=== PATIENT | female | born 1960 | race African-American/Black ===

== ENCOUNTER → 2017-01-23 20:18 | Emergency (ER) | payer MEDICARE | END | disposition home or self-care (01) | LOC: CFTX 20:18 | DX: S40.861A Insect bite (nonvenomous) of right upper arm, initial encounter (principal); E11.9 Type 2 diabetes mellitus without complications; I10 Essential (primary) hypertension; Z90.710 Acquired absence of both cervix and uterus; W57.XXXA Bitten or stung by nonvenomous insect and other nonvenomous arthropods, initial encounter; Y92.9 Unspecified place or not applicable; Z91.040 Latex allergy status | CPT/HCPCS: 99282 ==

== ENCOUNTER 2017-02-17 22:57 | Emergency (ER) | payer MEDICARE | END 2017-02-18 04:00 | disposition home or self-care (01) | LOC: CED 22:57 | DX: B02.9 Zoster without complications (principal); J45.909 Unspecified asthma, uncomplicated; Z88.1 Allergy status to other antibiotic agents; E03.9 Hypothyroidism, unspecified; Z90.710 Acquired absence of both cervix and uterus | CPT/HCPCS: 99282 ==

== ENCOUNTER → 2017-03-09 | Outpatient (CLI) | payer MEDICARE ==
--- NOTE | ~2017-03-09 | MR88 ---
[facility] A Service of [facility] RADIOLOGY TEXT RESULTS PATIENT: KYLE RODRIGUEZ LOCATION: [facility] : 58 UNIT #: [id number] AGE: [address]: Cezar Bermudez IV, MD SEX: F ORDER DR: [id number] [address] [address] [id number] MR#: [id number] Acc #: [id number] NAME: KYLE RODRIGUEZ : 1960 SEX: F STUDY DATE/TIME: 03/09/2017 16:40 UNIT: [facility] ROOM: STUDY DESCRIPTION: MR Humerus WWo Contrast Rt Attending Physician: Cezar Bermudez M.D. Referring Physician: Cezar Bermudez M.D. Ordering Physician: Cezar Bermudez M.D. Primary Care Physician: Primary Care Physician No MRI CENTER REPORT This report is preliminary unless electronic signature is present. EXAM MRI of the right upper arm humerus HISTORY Right shoulder and proximal humeral pain with decreased range of motion x1 month. Abnormal x-ray proximal humerus. COMPARISON Right shoulder films 03/01/2017 and three-phase bone scan 03/09/2017. FINDINGS Multiplanar multiecho imaging was performed of the right proximal humerus and shoulder utilizing a high field magnet and dedicated protocol. Axial T1-weighted images and coronal T1-weighted images were performed postcontrast. Examination demonstrates a eccentric bone lesion within the proximal humerus measures about 5.3 cm in greatest dimension. Represents a mixed sclerotic, lucent lesion both at MR and on radiographs. No surrounding marrow edema. No cortical destruction. No periostitis. This lesion showed minimal if any enhancement on bone scan. There is a small amount of cortical thickening along the anterior cortex. Postcontrast imaging demonstrates no enhancement of the bone lesion. Differential would include possible old healed fibrous cortical defect or less likely chondroid lesion. Possibly could represent an area of fibrous dysplasia, but again does not appear metabolically active. Evaluation of the shoulder joint is somewhat limited, but does demonstrate enhancement of the subacromial subdeltoid bursa with some bursal fluid suggesting bursitis. There is also a suspected loose body in the anterior shoulder joint, anterior to the subscapularis most likely within the subscapularis recess measuring up to 1.5 cm. Probable small partial tear anterior distal insertion supraspinatus tendon. No definite STS. [facility] A Service of [facility] RADIOLOGY TEXT RESULTS PATIENT: KYLE RODRIGUEZ LOCATION: [facility] : 58 UNIT #: [id number] AGE: [address]: Cezar Bermudez IV, MD SEX: F ORDER DR: full-thickness tear is seen. Minimal AC joint arthropathy but no significant erosive changes seen. IMPRESSION 1. Benign cortical and intramedullary lesion within the proximal right humerus. Imaging features compatible with a benign process given the absence of aggressive features and marrow edema. This also fails to significantly enhance both at MRI and show activity on bone scan. Findings all compatible with a benign quiescent process. Differential would include healed fibrous cortical defect, possible quiescent fibrous dysplasia or less likely chondroid lesion such as enchondroma. This could also represent the sequelae of old trauma though the distinct history of trauma was not then given. 2. Suspected small partial-thickness tear anterior distal insertion supraspinatus tendon. 3. Subacromial-subdeltoid bursitis. 4. Suspected 1.5 cm loose body anterior shoulder joint in the subscapularis recess. Dictated by... Lizz Connolly M.D. THIS IS AN ELECTRONICALLY VERIFIED REPORT Lizz Connolly M.D. at 03/10/2017 5:10 PM ROBBIN/catarina TD: 03/10/2017 11:19 JOB #: [id number] MRI CENTER REPORT Page 1 of 1
[2017-03-09 16:40] LABS: POC - CREATININE 0.78 mg/dL (0.44-1.03); POC - GFR >60.0 mL/min (>60)
== END | disposition home or self-care (01) ==
LOC: SMRI 15:48
PROVIDERS: Family Medicine Sports Medicine
DX: M25.511 Pain in right shoulder (principal); M79.621 Pain in right upper arm; M75.52 Bursitis of left shoulder
CPT/HCPCS: 73220; 82565; A9581